=== PATIENT | female | born 1945 | race African-American/Black ===

== ENCOUNTER 2022-11-17 17:03 | Inpatient (IN) | payer SELFPAY ==
--- NOTE | ~2022-11-17 | CT_ITS ---
EXAMINATION: CT BRAIN AND CT CERVICAL SPINE WITHOUT IV CONTRAST. CLINICAL INFORMATION: Dizziness and fall. COMPARISON: None TECHNIQUE: 5 mm thin axial and reformatted 2 mm thin sagittal and coronal images of brain were obtained without contrast. Subsequently axial 2 mm thin and reformatted 2 mm thin sagittal and coronal images of cervical spine were obtained. DLP [id number]. This CT examination was performed using dose optimization technique as appropriate, variously including the following: Automated exposure control Adjustment of MA and/or KV according to patient size(this includes techniques or standardized protocols for targeted exams where dose is matched to indication/reason for exam; extremities or head. Use of iterative reconstruction techniques. FINDINGS: Brain: There is no acute intra-axial, extra-axial bleed, masses or midline shift. There is no acute infarction in evolution. The lateral ventricles are symmetrical in size and configuration without enlargement. The [place] to white matter differentiation is maintained. Bone windows reveal no calvarial abnormality. There is no scalp hematoma. Bilateral paranasal sinuses are well-aerated with minimal mucoperiosteal thickening bilateral maxillary sinuses. Cervical spine: There is mild straightening of cervical lordosis. The vertebral heights and alignment is normal. There is loss of C4-C5 and C5-C6 disc heights. The craniovertebral junction and the C1-C2 alignment is normal. No visible acute fracture, dislocation or subluxation seen. The prevertebral and paravertebral soft tissues are normal. Minimal atelectatic changes or scarring is seen in the right lung apex. CT/CT cervical spine wo IV con IMPRESSION: No acute intracranial process seen. Minimal mucoperiosteal thickening of bilateral maxillary sinuses is noted. Mild straightening of cervical lordosis. No visible acute fracture, dislocation or subluxation seen. Mild degenerative disc changes C4-C5 and C5-C6 disc levels.
--- NOTE | ~2022-11-17 | CT_ITS ---
EXAMINATION: CT ANGIOGRAM OF THE CHEST WITH AND WITHOUT CONTRAST (CT PULMONARY ANGIOGRAM FOR PE) CLINICAL INFORMATION: Reason for Exam near syncope elevated d roger COMPARISON: None TECHNIQUE: Prior to contrast administration, noncontrast localization images were obtained. Subsequently, multidetector volumetric imaging was performed from the thoracic inlet to below the diaphragms following the administration of 85 mL Omnipaque 350 intravenous contrast. No contrast reaction reported Sagittal, coronal, and MIP oblique sagittal reformatted images were obtained on the CT workstation, uploaded to PACS, and reviewed. This CT examination was performed using dose optimization techniques as appropriate, variously including the following: *Automated exposure control *Adjustment of mA and/or kV according to patient size (this includes techniques or standardized protocols for targeted exams where dose is matched to indication/reason for exam; i.e. extremities or head) *Use of iterative reconstruction technique Total exam dose-length product 440 mGy-cm FINDINGS: QUALITY OF STUDY/CONTRAST BOLUS: Satisfactory. PULMONARY ARTERIES: No central or segmental pulmonary emboli. THORACIC AORTA: No aneurysm or dissection. LUNG: There are curvilinear opacities in the bilateral lower lobes favoring atelectasis. No additional consolidation is seen. PLEURA: No pleural effusion or pneumothorax. MEDIASTINUM: The visualized thyroid gland is unremarkable. There are subcentimeter mediastinal lymph nodes within the range of normal variation. Mild cardiomegaly without pericardial effusion. No evidence of septal bowing or right heart strain. CORONARY ARTERY CALCIFICATION: No significant coronary artery calcifications. CHEST WALL/AXILLA: No axillary or internal mammary lymphadenopathy. OSSEOUS STRUCTURES: Degenerative changes are noted in the spine. UPPER ABDOMEN: Unremarkable. No reflux of contrast into the hepatic veins to suggest elevated right heart pressures. CT/CT angio chest PE protocol IMPRESSION: 1. No pulmonary embolus identified. 2. Bibasilar atelectasis. 3. Mild cardiomegaly. VTE: negative
[2022-11-17 17:06] VITALS: BP 177/122; PULSE 73; RESP 20; TEMP 36.3; O2SAT 94; BMI 32.5
--- NOTE | 2022-11-17 17:10 | ED_ITS ---
HPI - General Adult General Chief complaint: Fall <BALTA Maria - Last Filed: 11/17/22 17:11> Stated complaint: Dizziness/Fall <BALTA Maria - Last Filed: 11/17/22 17:11> Time Seen by Provider: 11/17/22 20:13 <BALTA Maria - Last Filed: 11/17/22 17:11> Source: patient <Del Sims MD - Last Filed: 11/18/22 00:39> Mode of arrival: ambulatory <Del Sims MD - Last Filed: 11/18/22 00:39> Limitations: no limitations <Del Sims MD - Last Filed: 11/18/22 00:39> History of Present Illness HPI narrative: Patient with history of hypertension otherwise healthy came back from [place] to 3 days ago with cold symptoms running nose headache body aches with history of shortness of breath on exertion especially with chest discomfort for last few days has not seen any shelf stocker no fever or chills has occasional cough mostly dry PA do not think the blood pressure at home was 156/101 patient was feeling weak did not eat all day today felt dizzy earlier today and passed out no daughter was in the same room did not see her fall but found on the floor patient was dazed for few seconds no nausea no vomiting back to normal now still feels weak and tired and exhausted <Del Sims MD - Last Filed: 11/18/22 00:39> Related Data Allergies/adverse reactions: Allergies Allergy/AdvReac Type Severity Reaction Status Date / Time No Known Allergies Allergy Verified 11/17/22 17:11 <BALTA Maria - Last Filed: 11/17/22 17:11> Review of Systems Review of Systems: Yes all other systems are reviewed and are negative <Del Sims MD - Last Filed: 11/18/22 00:39> [facility] Social History Social History: Social History Advance Directives: No Advance Directives Information Provided: No <BALTA Maria - Last Filed: 11/17/22 17:11> Physical Exam ED Vital Signs: Vital Signs - 24 hr 11/17/22 17:06 11/17/22 19:48 11/17/22 21:32 Temperature 97.3 F 100.4 F 98.8 F Pulse Rate 73 71 74 Respiratory Rate 20 24 H 20 Blood Pressure 177/122 H 164/87 H 180/85 H Pulse Oximetry 94 94 94 Oxygen Delivery Method Room Air Room Air Room Air 11/18/22 00:18 Temperature 99.7 F Pulse Rate 73 Respiratory Rate 23 H Blood Pressure 167/68 H Pulse Oximetry 93 Oxygen Delivery Method Room Air BMI result Body Mass Index 32.5 <BALTA Maria - Last Filed: 11/17/22 17:11> Vital Signs - 24 hr 11/17/22 17:06 11/17/22 19:48 11/17/22 21:32 Temperature 97.3 F 100.4 F 98.8 F Pulse Rate 73 71 74 Respiratory Rate 20 24 H 20 Blood Pressure 177/122 H 164/87 H 180/85 H Pulse Oximetry 94 94 94 Oxygen Delivery Method Room Air Room Air Room Air 11/18/22 00:18 Temperature 99.7 F Pulse Rate 73 Respiratory Rate 23 H Blood Pressure 167/68 H Pulse Oximetry 93 Oxygen Delivery Method Room Air BMI result Body Mass Index 32.5 <Del Sims MD - Last Filed: 11/18/22 00:39> Appearance: Alert. Oriented X3. No acute distress. Eyes: PERRLA, No Nystagmus ENT: Pharynx normal. Oral Mucosa moist Neck: Normal inspection. Neck supple. CVS: Normal heart rate and rhythm. Pulses normal. Respiratory: No respiratory distress. Equal air entry bilateral, no wheezing/rales/rhonchi Abdomen: Soft and nontender. Bowel sounds are present, no mass palpable, no CVA tenderness Skin: Skin warm and dry. Normal skin color. Normal skin turgor. Extremities: No lower extremity edema. No calf tenderness Neuro: Oriented X 3. No motor deficit. No sensory deficit.No cerebellar signs , cranial nerves II-XII intact <Del Sims MD - Last Filed: 11/18/22 00:39> Course Course Course Narrative: RME performed by Karol Smith PA-C. Patient is a 76 year old female presenting to the emergency department with dizziness. Patient states that she has had an elevated blood pressure with intermittent dizziness over the last few days. Labs, EKG, CXR ordered. Patient placed back in the waiting room pending room availability and results. <BALTA Maria - Last Filed: 11/17/22 17:11> Medications Administered Discontinued Medications Generic Name Dose Route Start Last Admin Trade Name Freq PRN Reason Stop Dose Admin Aspirin 162 mg 11/17/22 23:16 11/18/22 00:15 Aspirin Enteric Coated 81 Mg Tablet. PO 11/17/22 23:17 162 mg ONCE ONE Administration Sodium Chloride 1,000 mls @ 999 mls/hr 11/17/22 20:34 11/17/22 21:21 Ns IV 11/17/22 21:34 999 mls/hr .Q1H1M ONE Administration Iohexol 85 ml 11/17/22 23:49 11/17/22 23:49 Iohexol 350 Mg/Ml 100 Ml Infus..Btl IV 11/17/22 23:50 85 ml ONCE ONE Administration <BALTA Maria - Last Filed: 11/17/22 17:11> Medications Administered Discontinued Medications Generic Name Dose Route Start Last Admin Trade Name Freq PRN Reason Stop Dose Admin Aspirin 162 mg 11/17/22 23:16 11/18/22 00:15 Aspirin Enteric Coated 81 Mg Tablet.Dr POMPA 11/17/22 23:17 162 mg ONCE ONE Administration Sodium Chloride 1,000 mls @ 999 mls/hr 11/17/22 20:34 11/17/22 21:21 Ns IV 11/17/22 21:34 999 mls/hr .Q1H1M ONE Administration Iohexol 85 ml 11/17/22 23:49 11/17/22 23:49 Iohexol 350 Mg/Ml 100 Ml Infus..Btl IV 11/17/22 23:50 85 ml ONCE ONE Administration <Del Sims MD - Last Filed: 11/18/22 00:39> Medical Decision Making Medical Decision Making MDM Narrative: Patient with exertion dyspnea and chest pain, positive COVID elevated troponin without any ischemic changes. Will start patient on heparin for unstable angina plan to admit shelf stocker to follow <Del Sims MD - Last Filed: 11/18/22 00:39> Differential Diagnosis Unstable angina/ACS/AMI/PE <Del Sims MD - Last Filed: 11/18/22 00:39> Consult Healthcare Provider Management of the patient was discussed with: Hospitalist <Del Sims MD - Last Filed: 11/18/22 00:39> Lab Data MDM Lab Attestation statement: I reviewed the patient's lab results. <Del Sims MD - Last Filed: 11/18/22 00:39> Result Diagrams: 11/17/22 17:59 11/17/22 17:59 <BALTA Maria - Last Filed: 11/17/22 17:11> Labs: Lab Results 11/17/22 11/17/22 11/17/22 Range/Units 17:59 17:59 17:59 WBC 5.2 (4.8-10.8) X10*3/uL RBC 4.16 L (4.20-5.50) X10*6/uL Hgb 13.0 (12.0-16.0) g/dl Hct 39.0 (37.0-47.0) % MCV 93.8 (80.0-98.0) fL MCH 31.3 (27.0-33.0) pg MCHC 33.3 (31.0-35.0) g/dl RDW 13.6 (11.0-16.0) % Plt Count 217 (160-400) X10*3/uL MPV 10.6 (9.4-12.3) fL Immature Gran % (Auto) 0.2 (0.0-0.4) % Neut % (Auto) 71.9 (45-73) % Lymph % (Auto) 17.9 L (20-40) % [place] % (Auto) 9.2 (2-11) % Eos % (Auto) 0.2 (0-4) % Baso % (Auto) 0.6 (0-2) % Lymph # (Auto) 0.9 L (1.2-4.9) X10*3/uL [place] # (Auto) 0.5 (0.1-1.2) X10*3/uL Eos # (Auto) 0.0 (0.0-0.4) X10*3/uL Baso # (Auto) 0.0 (0.0-0.2) X10*3/uL Abs Immat Gran (auto) 0.01 (0.00-0.03) X10*3/uL Absolute Neuts (auto) 3.7 (2.0-8.3) x10*3/uL Absolute Nucleated RBC 0.000 (0.0-0.012) X10*3/uL Nucleated RBC % (auto) 0.0 (0.0-0.2) /100WBC PT (10.0-13.1) SEC INR (0.9-1.1) APTT (26.0-36.4) SEC D-Dimer High Sensitivty NG/ML Sodium 139 (135-145) mmol/L Potassium 4.6 (3.3-5.1) mmol/L Chloride 106 (96-108) mmol/L Carbon Dioxide 21 L (22-29) mmol/L Anion Gap 17 (12-20) BUN 8 L (9-16) mg/dL Creatinine 0.97 (0.5-1.4) mg/dL Estim Creat Clear Calc 53.2 Estimated GFR 56 Random Glucose 111 (60-115) mg/dL Calcium 8.7 (8.4-10.2) mg/dL Magnesium 2.4 (1.6-2.6) mg/dL Total Bilirubin 0.5 (0.0-1.0) mg/dL AST 24 (5-31) U/L ALT 19 (0-31) U/L Alkaline Phosphatase 115 (39-117) U/L Total Creatine Kinase 228 H (26-140) U/L Troponin I High Sens 117.3 H* (<3.5-17.0) ng/L B-Natriuretic Peptide (<100) pg/mL Total Protein 7.7 (6.5-8.0) g/dL Albumin 3.8 (3.5-5.0) g/dL Urine Color Urine Appearance Urine pH (5.0-9.0) Ur Specific [place] (1.005-1.025) Urine Protein (Neg-Trace) mg/dL Urine Glucose (UA) (Negative) mg/dL Urine Ketones (Negative) mg/dL Urine Blood (Negative) Urine Nitrite (Negative) Ur Leukocyte Esterase (Negative) Influenza Type A (PCR) (Negative) Influenza Type B (PCR) (Negative) RSV RNA Qual (PCR) (Negative) SARS-CoV-2 RNA (RT-PCR) (Negative) 11/17/22 11/17/22 11/17/22 Range/Units 17:59 17:59 18:06 WBC (4.8-10.8) X10*3/uL RBC (4.20-5.50) X10*6/uL Hgb (12.0-16.0) g/dl Hct (37.0-47.0) % MCV (80.0-98.0) fL MCH (27.0-33.0) pg MCHC (31.0-35.0) g/dl RDW (11.0-16.0) % Plt Count (160-400) X10*3/uL MPV (9.4-12.3) fL Immature Gran % (Auto) (0.0-0.4) % Neut % (Auto) (45-73) % Lymph % (Auto) (20-40) % [place] % (Auto) (2-11) % Eos % (Auto) (0-4) % Baso % (Auto) (0-2) % Lymph # (Auto) (1.2-4.9) X10*3/uL [place] # (Auto) (0.1-1.2) X10*3/uL Eos # (Auto) (0.0-0.4) X10*3/uL Baso # (Auto) (0.0-0.2) X10*3/uL Abs Immat Gran (auto) (0.00-0.03) X10*3/uL Absolute Neuts (auto) (2.0-8.3) x10*3/uL Absolute Nucleated RBC (0.0-0.012) X10*3/uL Nucleated RBC % (auto) (0.0-0.2) /100WBC PT (10.0-13.1) SEC INR (0.9-1.1) APTT (26.0-36.4) SEC D-Dimer High Sensitivty NG/ML Sodium (135-145) mmol/L Potassium (3.3-5.1) mmol/L Chloride (96-108) mmol/L Carbon Dioxide (22-29) mmol/L Anion Gap (12-20) BUN (9-16) mg/dL Creatinine (0.5-1.4) mg/dL Estim Creat Clear Calc Estimated GFR Random Glucose (60-115) mg/dL Calcium (8.4-10.2) mg/dL Magnesium (1.6-2.6) mg/dL Total Bilirubin (0.0-1.0) mg/dL AST (5-31) U/L ALT (0-31) U/L Alkaline Phosphatase (39-117) U/L Total Creatine Kinase (26-140) U/L Troponin I High Sens (<3.5-17.0) ng/L B-Natriuretic Peptide 46 (<100) pg/mL Total Protein (6.5-8.0) g/dL Albumin (3.5-5.0) g/dL Urine Color Yellow Urine Appearance Clear Urine pH 5.5 (5.0-9.0) Ur Specific [place] 1.010 (1.005-1.025) Urine Protein Negative (Neg-Trace) mg/dL Urine Glucose (UA) Negative (Negative) mg/dL Urine Ketones Negative (Negative) mg/dL Urine Blood Negative (Negative) Urine Nitrite Negative (Negative) Ur Leukocyte Esterase Negative (Negative) Influenza Type A (PCR) NEGATIVE (Negative) Influenza Type B (PCR) NEGATIVE (Negative) RSV RNA Qual (PCR) NEGATIVE (Negative) SARS-CoV-2 RNA (RT-PCR) POSITIVE A (Negative) 11/17/22 11/17/22 Range/Units 21:12 21:25 WBC (4.8-10.8) X10*3/uL RBC (4.20-5.50) X10*6/uL Hgb (12.0-16.0) g/dl Hct (37.0-47.0) % MCV (80.0-98.0) fL MCH (27.0-33.0) pg MCHC (31.0-35.0) g/dl RDW (11.0-16.0) % Plt Count (160-400) X10*3/uL MPV (9.4-12.3) fL Immature Gran % (Auto) (0.0-0.4) % Neut % (Auto) (45-73) % Lymph % (Auto) (20-40) % [place] % (Auto) (2-11) % Eos % (Auto) (0-4) % Baso % (Auto) (0-2) % Lymph # (Auto) (1.2-4.9) X10*3/uL [place] # (Auto) (0.1-1.2) X10*3/uL Eos # (Auto) (0.0-0.4) X10*3/uL Baso # (Auto) (0.0-0.2) X10*3/uL Abs Immat Gran (auto) (0.00-0.03) X10*3/uL Absolute Neuts (auto) (2.0-8.3) x10*3/uL Absolute Nucleated RBC (0.0-0.012) X10*3/uL Nucleated RBC % (auto) (0.0-0.2) /100WBC PT 11.5 (10.0-13.1) SEC INR 1.0 (0.9-1.1) APTT 28.8 (26.0-36.4) SEC D-Dimer High Sensitivty 622 NG/ML Sodium (135-145) mmol/L Potassium (3.3-5.1) mmol/L Chloride (96-108) mmol/L Carbon Dioxide (22-29) mmol/L Anion Gap (12-20) BUN (9-16) mg/dL Creatinine (0.5-1.4) mg/dL Estim Creat Clear Calc Estimated GFR Random Glucose (60-115) mg/dL Calcium (8.4-10.2) mg/dL Magnesium (1.6-2.6) mg/dL Total Bilirubin (0.0-1.0) mg/dL AST (5-31) U/L ALT (0-31) U/L Alkaline Phosphatase (39-117) U/L Total Creatine Kinase (26-140) U/L Troponin I High Sens 122.1 H* (<3.5-17.0) ng/L B-Natriuretic Peptide (<100) pg/mL Total Protein (6.5-8.0) g/dL Albumin (3.5-5.0) g/dL Urine Color Urine Appearance Urine pH (5.0-9.0) Ur Specific [place] (1.005-1.025) Urine Protein (Neg-Trace) mg/dL Urine Glucose (UA) (Negative) mg/dL Urine Ketones (Negative) mg/dL Urine Blood (Negative) Urine Nitrite (Negative) Ur Leukocyte Esterase (Negative) Influenza Type A (PCR) (Negative) Influenza Type B (PCR) (Negative) RSV RNA Qual (PCR) (Negative) SARS-CoV-2 RNA (RT-PCR) (Negative) <BALTA Maria - Last Filed: 11/17/22 17:11> Lab Results 11/17/22 11/17/22 11/17/22 Range/Units 17:59 17:59 17:59 WBC 5.2 (4.8-10.8) X10*3/uL RBC 4.16 L (4.20-5.50) X10*6/uL Hgb 13.0 (12.0-16.0) g/dl Hct 39.0 (37.0-47.0) % MCV 93.8 (80.0-98.0) fL MCH 31.3 (27.0-33.0) pg MCHC 33.3 (31.0-35.0) g/dl RDW 13.6 (11.0-16.0) % Plt Count 217 (160-400) X10*3/uL MPV 10.6 (9.4-12.3) fL Immature Gran % (Auto) 0.2 (0.0-0.4) % Neut % (Auto) 71.9 (45-73) % Lymph % (Auto) 17.9 L (20-40) % [place] % (Auto) 9.2 (2-11) % Eos % (Auto) 0.2 (0-4) % Baso % (Auto) 0.6 (0-2) % Lymph # (Auto) 0.9 L (1.2-4.9) X10*3/uL [place] # (Auto) 0.5 (0.1-1.2) X10*3/uL Eos # (Auto) 0.0 (0.0-0.4) X10*3/uL Baso # (Auto) 0.0 (0.0-0.2) X10*3/uL Abs Immat Gran (auto) 0.01 (0.00-0.03) X10*3/uL Absolute Neuts (auto) 3.7 (2.0-8.3) x10*3/uL Absolute Nucleated RBC 0.000 (0.0-0.012) X10*3/uL Nucleated RBC % (auto) 0.0 (0.0-0.2) /100WBC PT (10.0-13.1) SEC INR (0.9-1.1) APTT (26.0-36.4) SEC D-Dimer High Sensitivty NG/ML Sodium 139 (135-145) mmol/L Potassium 4.6 (3.3-5.1) mmol/L Chloride 106 (96-108) mmol/L Carbon Dioxide 21 L (22-29) mmol/L Anion Gap 17 (12-20) BUN 8 L (9-16) mg/dL Creatinine 0.97 (0.5-1.4) mg/dL Estim Creat Clear Calc 53.2 Estimated GFR 56 Random Glucose 111 (60-115) mg/dL Calcium 8.7 (8.4-10.2) mg/dL Magnesium 2.4 (1.6-2.6) mg/dL Total Bilirubin 0.5 (0.0-1.0) mg/dL AST 24 (5-31) U/L ALT 19 (0-31) U/L Alkaline Phosphatase 115 (39-117) U/L Total Creatine Kinase 228 H (26-140) U/L Troponin I High Sens 117.3 H* (<3.5-17.0) ng/L B-Natriuretic Peptide (<100) pg/mL Total Protein 7.7 (6.5-8.0) g/dL Albumin 3.8 (3.5-5.0) g/dL Urine Color Urine Appearance Urine pH (5.0-9.0) Ur Specific [place] (1.005-1.025) Urine Protein (Neg-Trace) mg/dL Urine Glucose (UA) (Negative) mg/dL Urine Ketones (Negative) mg/dL Urine Blood (Negative) Urine Nitrite (Negative) Ur Leukocyte Esterase (Negative) Influenza Type A (PCR) (Negative) Influenza Type B (PCR) (Negative) RSV RNA Qual (PCR) (Negative) SARS-CoV-2 RNA (RT-PCR) (Negative) 11/17/22 11/17/2211/17/23 Range/Units 17:59 17:59 18:06 WBC (4.8-10.8) X10*3/uL RBC (4.20-5.50) X10*6/uL Hgb (12.0-16.0) g/dl Hct (37.0-47.0) % MCV (80.0-98.0) fL MCH (27.0-33.0) pg MCHC (31.0-35.0) g/dl RDW (11.0-16.0) % Plt Count (160-400) X10*3/uL MPV (9.4-12.3) fL Immature Gran % (Auto) (0.0-0.4) % Neut % (Auto) (45-73) % Lymph % (Auto) (20-40) % [place] % (Auto) (2-11) % Eos % (Auto) (0-4) % Baso % (Auto) (0-2) % Lymph # (Auto) (1.2-4.9) X10*3/uL [place] # (Auto) (0.1-1.2) X10*3/uL Eos # (Auto) (0.0-0.4) X10*3/uL Baso # (Auto) (0.0-0.2) X10*3/uL Abs Immat Gran (auto) (0.00-0.03) X10*3/uL Absolute Neuts (auto) (2.0-8.3) x10*3/uL Absolute Nucleated RBC (0.0-0.012) X10*3/uL Nucleated RBC % (auto) (0.0-0.2) /100WBC PT (10.0-13.1) SEC INR (0.9-1.1) APTT (26.0-36.4) SEC D-Dimer High Sensitivty NG/ML Sodium (135-145) mmol/L Potassium (3.3-5.1) mmol/L Chloride (96-108) mmol/L Carbon Dioxide (22-29) mmol/L Anion Gap (12-20) BUN (9-16) mg/dL Creatinine (0.5-1.4) mg/dL Estim Creat Clear Calc Estimated GFR Random Glucose (60-115) mg/dL Calcium (8.4-10.2) mg/dL Magnesium (1.6-2.6) mg/dL Total Bilirubin (0.0-1.0) mg/dL AST (5-31) U/L ALT (0-31) U/L Alkaline Phosphatase (39-117) U/L Total Creatine Kinase (26-140) U/L Troponin I High Sens (<3.5-17.0) ng/L B-Natriuretic Peptide 46 (<100) pg/mL Total Protein (6.5-8.0) g/dL Albumin (3.5-5.0) g/dL Urine Color Yellow Urine Appearance Clear Urine pH 5.5 (5.0-9.0) Ur Specific [place] 1.010 (1.005-1.025) Urine Protein Negative (Neg-Trace) mg/dL Urine Glucose (UA) Negative (Negative) mg/dL Urine Ketones Negative (Negative) mg/dL Urine Blood Negative (Negative) Urine Nitrite Negative (Negative) Ur Leukocyte Esterase Negative (Negative) Influenza Type A (PCR) NEGATIVE (Negative) Influenza Type B (PCR) NEGATIVE (Negative) RSV RNA Qual (PCR) NEGATIVE (Negative) SARS-CoV-2 RNA (RT-PCR) POSITIVE A (Negative) 11/17/22 11/17/22 Range/Units 21:12 21:25 WBC (4.8-10.8) X10*3/uL RBC (4.20-5.50) X10*6/uL Hgb (12.0-16.0) g/dl Hct (37.0-47.0) % MCV (80.0-98.0) fL MCH (27.0-33.0) pg MCHC (31.0-35.0) g/dl RDW (11.0-16.0) % Plt Count (160-400) X10*3/uL MPV (9.4-12.3) fL Immature Gran % (Auto) (0.0-0.4) % Neut % (Auto) (45-73) % Lymph % (Auto) (20-40) % [place] % (Auto) (2-11) % Eos % (Auto) (0-4) % Baso % (Auto) (0-2) % Lymph # (Auto) (1.2-4.9) X10*3/uL [place] # (Auto) (0.1-1.2) X10*3/uL Eos # (Auto) (0.0-0.4) X10*3/uL Baso # (Auto) (0.0-0.2) X10*3/uL Abs Immat Gran (auto) (0.00-0.03) X10*3/uL Absolute Neuts (auto) (2.0-8.3) x10*3/uL Absolute Nucleated RBC (0.0-0.012) X10*3/uL Nucleated RBC % (auto) (0.0-0.2) /100WBC PT 11.5 (10.0-13.1) SEC INR 1.0 (0.9-1.1) APTT 28.8 (26.0-36.4) SEC D-Dimer High Sensitivty 622 NG/ML Sodium (135-145) mmol/L Potassium (3.3-5.1) mmol/L Chloride (96-108) mmol/L Carbon Dioxide (22-29) mmol/L Anion Gap (12-20) BUN (9-16) mg/dL Creatinine (0.5-1.4) mg/dL Estim Creat Clear Calc Estimated GFR Random Glucose (60-115) mg/dL Calcium (8.4-10.2) mg/dL Magnesium (1.6-2.6) mg/dL Total Bilirubin (0.0-1.0) mg/dL AST (5-31) U/L ALT (0-31) U/L Alkaline Phosphatase (39-117) U/L Total Creatine Kinase (26-140) U/L Troponin I High Sens 122.1 H* (<3.5-17.0) ng/L B-Natriuretic Peptide (<100) pg/mL Total Protein (6.5-8.0) g/dL Albumin (3.5-5.0) g/dL Urine Color Urine Appearance Urine pH (5.0-9.0) Ur Specific [place] (1.005-1.025) Urine Protein (Neg-Trace) mg/dL Urine Glucose (UA) (Negative) mg/dL Urine Ketones (Negative) mg/dL Urine Blood (Negative) Urine Nitrite (Negative) Ur Leukocyte Esterase (Negative) Influenza Type A (PCR) (Negative) Influenza Type B (PCR) (Negative) RSV RNA Qual (PCR) (Negative) SARS-CoV-2 RNA (RT-PCR) (Negative) <Del Sims MD - Last Filed: 11/18/22 00:39> Independent Interpretation I performed an independent interpretation of an: EKG <Del Sims MD - Last Filed: 11/18/22 00:39> Interpretation: No sinus rhythm heart rate 66 beats per minute LVH no acute distress no acute ischemia <Del Sims MD - Last Filed: 11/18/22 00:39> Critical Care Time Critical Care Time Critical Care Time: Yes <Del Sims MD - Last Filed: 11/18/22 00:39> Total Critical Care Time: 40 <Del Sims MD - Last Filed: 11/18/22 00:39> Attestation: The patient was critically ill with a high probability of imminent or life threatening deterioration. I spent greater than45 minutes of discontinuous time evaluating the patient,delivering critical care at the bedside, discussing and evaluating pertinent data with consultants. Critical care time does not include time spent performing separately billable procedures or teaching. Total time spent performing critical care was 40 minutes. <Del Sims MD - Last Filed: 11/18/22 00:39> Discharge Plan Discharge Clinical Impression: Acute COVID-19, Unstable angina <BALTA Maria - Last Filed: 11/17/22 17:11> Patient Disposition: Admitted As Inpatient <BALTA Maria - Last Filed: 11/17/22 17:11>
--- NOTE | 2022-11-17 17:11 | ECG_ITS ---
Test Reason : DIZZINESS Blood Pressure : / mmHG Vent. Rate : 066 BPM Atrial Rate : 066 BPM P-R Int : 160 ms QRS Dur : 076 ms QT Int : 406 ms P-R-T Axes : 040 -27 023 degrees QTc Int : 425 ms Normal sinus rhythm Moderate voltage criteria for LVH, may be normal variant ( R in aVL , [place] product ) Borderline ECG No previous ECGs available Referred By: Karol Smith Electronically Signed By:Hector Abbasi
[2022-11-17 18:04] LABS: MANUAL DIFF FLAG NO
[2022-11-17 18:16] LABS: Appearance Urine Clear; Color Urine Yellow; Glucose Urine UA Negative (Negative); Leukocyte Esterase Urine Negative (Negative); Nitrite Urine Negative (Negative); PH 5.5 (5.0-9.0); Urine Blood Negative (Negative); Urine Ketones Negative (Negative); Urine Protein Negative (Neg-Trace)
[2022-11-17 18:17] LABS: Basophils Percent Auto 0.6 % (0-2); Eosinophils Percent Auto 0.2 % (0-4); Imm Gran Abs Auto 0.01 X10*3/uL (0.00-0.03); Imm Gran Pct Auto 0.2 % (0.0-0.4); Lymphocytes Absolute Auto 0.9 X10*3/uL (1.2-4.9); Lymphocytes Percent Auto 17.9 % (20-40); Mean Corpuscular HGB Conc 33.3 g/dl (31.0-35.0); Mean Corpuscular Hemoglobin 31.3 pg (27.0-33.0); Mean Corpuscular Volume 93.8 fL (80.0-98.0); Mean Platelet Volume 10.6 fL (9.4-12.3); Monocytes Absolute Auto 0.5 X10*3/uL (0.1-1.2); Monocytes Percent Auto 9.2 % (2-11); Neutrophils Absolute Auto 3.7 x10*3/uL (2.0-8.3); Neutrophils Percent Auto 71.9 % (45-73); Platelet Count 217 X10*3/uL (160-400); Red Blood Count 4.16 X10*6/uL (4.20-5.50); Red Cell Distribution Width 13.6 % (11.0-16.0); White Blood Count 5.2 X10*3/uL (4.8-10.8)
[2022-11-17 18:25] LABS: Alanine Aminotransferase 19 U/L (0-31); Albumin Level 3.8 g/dL (3.5-5.0); Alkaline Phosphatase 115 U/L (39-117); Anion Gap 17 (12-20); Aspartate Amino Transferase 24 U/L (5-31); Bilirubin Total 0.5 mg/dL (0.0-1.0); Blood Urea Nitrogen 8 mg/dL (9-16); Calcium 8.7 mg/dL (8.4-10.2); Carbon Dioxide 21 mmol/L (22-29); Chloride 106 mmol/L (96-108); Creatinine Clr Calc Pharmacy 53.2; Estimated Glomerular Filt Rate 56; Glucose Random 111 mg/dL (60-115); Magnesium 2.4 mg/dL (1.6-2.6); Potassium 4.6 mmol/L (3.3-5.1); Sodium 139 mmol/L (135-145); Total Protein 7.7 g/dL (6.5-8.0)
[2022-11-17 18:31] LABS: B Type Natriuretic Peptide 46 pg/mL (<100)
[2022-11-17 18:51] LABS: Influenza A PCR NEGATIVE (Negative); Influenza B PCR NEGATIVE (Negative); Resp Syncy Virus RNA Qual PCR NEGATIVE (Negative); SARS COV2 PCR INHOUSE POSITIVE (Negative); Troponin-I High Sensitivity 117.3 ng/L (<3.5-17.0)
[2022-11-17 19:48] VITALS: BP 164/87; PULSE 71; RESP 24; TEMP 38; O2SAT 94
[2022-11-17] MEDS: 0.9 % Sodium Chloride 1,000 ML 999 ML IV (21:21)
[2022-11-17 21:32] VITALS: BP 180/85; PULSE 74; RESP 20; TEMP 37.1; O2SAT 94
[2022-11-17 21:47] LABS: Prothrombin Time 11.5 SEC (10.0-13.1)
[2022-11-17 21:49] LABS: Partial Thromboplastin Time 28.8 SEC (26.0-36.4)
[2022-11-17 22:00] LABS: Troponin-I High Sensitivity 122.1 ng/L (<3.5-17.0)
[2022-11-17 22:41] LABS: D Dimer High Sensitivity 622 NG/ML
[2022-11-17] MEDS: iohexoL 350 MG/ML 100 ML INFUS..BTL 85 ML IV (23:49)
[2022-11-18] VITALS (8 sets, daily range): BP systolic 131–167; BP diastolic 68–95; PULSE 59–79; RESP 18–24; TEMP 36.9–37.6; O2SAT 93–98; BMI 34.9
[2022-11-18] MEDS: Aspirin Enteric Coated 81 MG TABLET.DR 162 MG PO (00:15)
--- NOTE | 2022-11-18 00:33 | P.HPHOSP_ITS ---
History of Present Illness Date of Service: 11/18/22 Chief Complaint: Chest discomfort This is a 76-year-old female with pertinent history of essential hypertension who presents to the emergency department for evaluation of chest discomfort and dizziness. Patient is from [place] and flew in from [place] this week. States she has been having chest discomfort, substernal which is worse with exertion. Also has runny nose, headache, generalized body ache. Chest discomfort associated with shortness of breath. She only takes an antihypertensive and states he is compliant with it. Her blood pressures were running high at home. Patient also had an episode of dizziness after which she fell. Unclear if she l ost consciousness. Patient denies fever, chills, palpitations, abdominal pain, changes in urinary or bowel habits. No history of ACS/CHF In the emergency department, troponin was found to be elevated and she was initiated on heparin drip Review of Systems Constitutional: Constitutional: Reports body ache(s), Reports lethargy and Reports malaise Cardiovascular: Cardiovascular: Reports chest pain, Reports chest pain with activity and Reports dyspnea on exertion Respiratory: Respiratory: Reports cough and Reports dyspnea on exertion Gastrointestinal: Gastrointestinal: Reports no additional gastrointestinal complaints Genitourinary: Genitourinary: Reports no additional female genitourinary complaints [facility] Medical History Hypertension Pertinent family history: not significant due to age Social History Advance Directives: No Advance Directives Information Provided: No Meds Allergies Allergy/AdvReac Type Severity Reaction Status Date / Time No Known Allergies Allergy Verified 11/17/22 17:11 Active Medications: Current Medications Heparin Sodium (Porcine) (Heparin Sodium,Porcine 5,000 Unit/Ml Vial) 3,400 unit 40 unit/kg (3400 unit) IVPUSH PROTOCOL BOLUS PRN; Protocol PRN Reason: 40 unit/kg - Heparin Protocol Heparin Sodium (Porcine) (Heparin Sodium,Porcine 5,000 Unit/Ml Vial) 6,900 unit 80 unit/kg (6900 unit) IVPUSH PROTOCOL BOLUS PRN; Protocol PRN Reason: 80 unit/kg - Heparin Protocol Heparin Sodium/Sodium Chloride (Heparin Sodium,Porcine/1/2ns) 25,000 unit in 250 mls @ 0 mls/hr IVCONT .Q0M [facility]; Protocol Physical Exam Vital Signs and Narrative: Vital Signs: Last Vital Signs Temp 99.7 F 11/18/22 00:18 Pulse 73 11/18/22 00:18 Resp 23 H 11/18/22 00:18 BP 167/68 H 11/18/22 00:18 Pulse Ox 93 11/18/22 00:18 O2 Del Method 11/18/22 00:18 BMI result Body Mass Index 32.5 Elderly female lying in bed in no distress Neck supple, no JVD Regular rate and rhythm, S1-S2 heard Regular breath sounds bilaterally, no wheezing or crackles appreciated Abdomen soft nontender, no guarding, no rigidity Patient is awake, alert and oriented to self, place, time and person ; no focal motor deficit Psych: Normal mood No pedal edema Results Labs 11/17/22 17:59 11/17/22 17:59 Labs: Laboratory Results - last 24 hr 11/17/22 11/17/22 11/17/22 17:59 17:59 17:59 MCV 93.8 MCH 31.3 MCHC 33.3 RDW 13.6 Plt Count 217 MPV 10.6 Immature Gran % (Auto) 0.2 Neut % (Auto) 71.9 Lymph % (Auto) 17.9 L [place] % (Auto) 9.2 Eos % (Auto) 0.2 Baso % (Auto) 0.6 Lymph # (Auto) 0.9 L [place] # (Auto) 0.5 Eos # (Auto) 0.0 Baso # (Auto) 0.0 Abs Immat Gran (auto) 0.01 Absolute Neuts (auto) 3.7 Absolute Nucleated RBC 0.000 Nucleated RBC % (auto) 0.0 PT INR APTT D-Dimer High Sensitivty Anion Gap 17 Estim Creat Clear Calc 53.2 Estimated GFR 56 Random Glucose 111 Calcium 8.7 Magnesium 2.4 Total Bilirubin 0.5 AST 24 ALT 19 Alkaline Phosphatase 115 Total Creatine Kinase 228 H Troponin I High Sens 117.3 H* B-Natriuretic Peptide Total Protein 7.7 Albumin 3.8 Urine Color Urine Appearance Urine pH Ur Specific [place] Urine Protein Urine Glucose (UA) Urine Ketones Urine Blood Urine Nitrite Ur Leukocyte Esterase Influenza Type A (PCR) Influenza Type B (PCR) RSV RNA Qual (PCR) SARS-CoV-2 RNA (RT-PCR) 11/17/22 11/17/22 11/17/22 17:59 17:59 18:06 MCV MCH MCHC RDW Plt Count MPV Immature Gran % (Auto) Neut % (Auto) Lymph % (Auto) [place] % (Auto) Eos % (Auto) Baso % (Auto) Lymph # (Auto) [place] # (Auto) Eos # (Auto) Baso # (Auto) Abs Immat Gran (auto) Absolute Neuts (auto) Absolute Nucleated RBC Nucleated RBC % (auto) PT INR APTT D-Dimer High Sensitivty Anion Gap Estim Creat Clear Calc Estimated GFR Random Glucose Calcium Magnesium Total Bilirubin AST ALT Alkaline Phosphatase Total Creatine Kinase Troponin I High Sens B-Natriuretic Peptide 46 Total Protein Albumin Urine Color Yellow Urine Appearance Clear Urine pH 5.5 Ur Specific [place] 1.010 Urine Protein Negative Urine Glucose (UA) Negative Urine Ketones Negative Urine Blood Negative Urine Nitrite Negative Ur Leukocyte Esterase Negative Influenza Type A (PCR) NEGATIVE Influenza Type B (PCR) NEGATIVE RSV RNA Qual (PCR) NEGATIVE SARS-CoV-2 RNA (RT-PCR) POSITIVE A 11/17/22 11/17/22 21:12 21:25 MCV MCH MCHC RDW Plt Count MPV Immature Gran % (Auto) Neut % (Auto) Lymph % (Auto) [place] % (Auto) Eos % (Auto) Baso % (Auto) Lymph # (Auto) [place] # (Auto) Eos # (Auto) Baso # (Auto) Abs Immat Gran (auto) Absolute Neuts (auto) Absolute Nucleated RBC Nucleated RBC % (auto) PT 11.5 INR 1.0 APTT 28.8 D-Dimer High Sensitivty 622 Anion Gap Estim Creat Clear Calc Estimated GFR Random Glucose Calcium Magnesium Total Bilirubin AST ALT Alkaline Phosphatase Total Creatine Kinase Troponin I High Sens 122.1 H* B-Natriuretic Peptide Total Protein Albumin Urine Color Urine Appearance Urine pH Ur Specific [place] Urine Protein Urine Glucose (UA) Urine Ketones Urine Blood Urine Nitrite Ur Leukocyte Esterase Influenza Type A (PCR) Influenza Type B (PCR) RSV RNA Qual (PCR) SARS-CoV-2 RNA (RT-PCR) Imaging Radiologist's Impressions: Impressions Cervical Spine CT 11/17/22 18:25 IMPRESSION: No acute intracranial process seen. Minimal mucoperiosteal thickening of bilateral maxillary sinuses is noted. Mild straightening of cervical lordosis. No visible acute fracture, dislocation or subluxation seen. Mild degenerative disc changes C4-C5 and C5-C6 disc levels. Head CT 11/17/22 18:25 IMPRESSION: No acute intracranial process seen. Minimal mucoperiosteal thickening of bilateral maxillary sinuses is noted. Mild straightening of cervical lordosis. No visible acute fracture, dislocation or subluxation seen. Mild degenerative disc changes C4-C5 and C5-C6 disc levels. Chest CTA 11/17/22 23:53 IMPRESSION: 1. No pulmonary embolus identified. 2. Bibasilar atelectasis. 3. Mild cardiomegaly. VTE: negative Assessment and Plan (1) NSTEMI (non-ST elevated myocardial infarction): Status: Acute Plan This is a 76-year-old female with pertinent history of essential hypertension who presents to the emergency department for evaluation of chest discomfort and dizziness. #. NSTEMI: Initiated IV heparin in the ER. Patient given aspirin, beta-yaneth and statin. Ordered echo and consulting cardiology. #. Hypertensive emergency: Unclear antihypertensive regimen at home. Given beta-yaneth as above and initiating calcium channel yaneth #. Presyncope: Orthostatic versus cardiac. Unclear if patient lost consciousness. Resuscitated with IV crystalloids in the ER. Will admit with tele monitor and repeat orthostatic vital signs in a.m. #. COVID-19 infection: Symptomatic treatment. No hypoxemia and no indication for Decadron DVT prophylaxis: Heparin drip Full code Cardiac diet Admit as inpatient and will require two night minimum hospital stay for IV heparin Time Spent With Patient Time: Total time managing care of this patient today ____ minutes. Quality Stroke Does the patient have a stroke diagnosis?: No VTE Prior VTE?: No VTE Risk Level:: Medical - moderate - high VTE Device Contraindication: Treatment Not Indicated VTE Drug Contraindication: N/A - Med Ordered
--- NOTE | 2022-11-18 00:45 | MHC.EDTECH ---
PT 1x assisted to the bedside commode. PT 1X assisted back to bed. Call parsons placed in reach and warm blankets given
--- NOTE | 2022-11-18 01:11 | PC.NURSE ---
Left AC IV line infiltrated. Multiple unsuccessful attempts made by 2 RN's to re-establish an IV line. MD aware to attempt an U/S line. Pt to be medicated with IV Heparin when IV line is established. MD aware.
[2022-11-18 01:32] LABS: PTT Heparin Drip 30.6 SEC (53-77.9)
[2022-11-18] MEDS: Heparin Sodium,Porcine/1/2NS 25,000 UNIT/250 ML IV.SOLN 10 UNIT IVCONT (01:51)
[2022-11-18] MEDS: Metoprolol Tartrate 5 MG/5 ML VIAL IVPUSH (01:54)
[2022-11-18] MEDS: Heparin Sodium,Porcine 5,000 UNIT/ML VIAL 5000 UNIT IVPUSH (01:54)
[2022-11-18] MEDS: amLODIPine Besylate 5 MG TABLET PO ×2 (01:56→10:10)
[2022-11-18] MEDS: Atorvastatin Calcium 40 MG TABLET PO (01:56)
--- NOTE | 2022-11-18 02:03 | PC.NURSE ---
20G IV L AC established via U/S by . Pt medicated as ordered. Heparin drip started at 10ml/hr as ordered. Pt tolerating well. Next PTT HD due @ 0800. Pt aware of plan of care. Will continue to monitor.
--- NOTE | 2022-11-18 05:31 | PC.NURSE ---
RN to RN report provided to CARRINGTON Malagon. Pt being transferred to room 477 and aware of plan of care.
[2022-11-18 07:15] LABS: MANUAL DIFF FLAG NO
[2022-11-18 07:16] LABS: Basophils Percent Auto 0.6 % (0-2); Hematocrit 38.9 % (37.0-47.0); Hemoglobin 12.7 g/dl (12.0-16.0); Imm Gran Abs Auto 0.01 X10*3/uL (0.00-0.03); Imm Gran Pct Auto 0.3 % (0.0-0.4); Lymphocytes Absolute Auto 1.5 X10*3/uL (1.2-4.9); Lymphocytes Percent Auto 44.2 % (20-40); Mean Corpuscular HGB Conc 32.6 g/dl (31.0-35.0); Mean Corpuscular Hemoglobin 31.3 pg (27.0-33.0); Mean Corpuscular Volume 95.8 fL (80.0-98.0); Mean Platelet Volume 10.2 fL (9.4-12.3); Monocytes Absolute Auto 0.4 X10*3/uL (0.1-1.2); Monocytes Percent Auto 10.2 % (2-11); Neutrophils Absolute Auto 1.5 x10*3/uL (2.0-8.3); Neutrophils Percent Auto 44.7 % (45-73); Platelet Count 219 X10*3/uL (160-400); Red Blood Count 4.06 X10*6/uL (4.20-5.50); Red Cell Distribution Width 13.8 % (11.0-16.0); White Blood Count 3.4 X10*3/uL (4.8-10.8)
[2022-11-18 07:25] LABS: PTT Heparin Drip 83.3 SEC (53-77.9)
[2022-11-18 08:12] LABS: Troponin-I High Sensitivity 137.2 ng/L (<3.5-17.0)
[2022-11-18] MEDS: 0.9 % Sodium Chloride Flush 3 ML SYRINGE IVFLUSH (10:10)
[2022-11-18] MEDS: Acetaminophen 325 MG TABLET 650 MG PO ×2 (10:13→16:48)
[2022-11-18 12:35] LABS: Anion Gap 16 (12-20); Blood Urea Nitrogen 7 mg/dL (9-16); Calcium 8.6 mg/dL (8.4-10.2); Carbon Dioxide 18 mmol/L (22-29); Chloride 110 mmol/L (96-108); Creatinine Clr Calc Pharmacy 65.2; Estimated Glomerular Filt Rate > 60; Glucose Random 112 mg/dL (60-115); Sodium 140 mmol/L (135-145)
--- NOTE | 2022-11-18 13:07 | P.CONCA_ITS ---
History of Present Illness History of Present Illness Date of Service: 11/18/22 Requesting physician: Jhonny Escalona Chief complaint: + troponin, Elevated BP Narrative: [age] year female who traveled back from [place] on Sunday. She is COVID positive. She has headache and ear pain currently. Denying any chest discomfort. She also was feeling slightly dizzy but had no syncope. She has very mildly elevated troponin levels. Her blood pressures were significantly elevated. Her main complaint right now is that she has sinus pain and ear ache. She is denying any chest discomfort at any time. No shortness of breath. Blood pressure is little better. She was started on heparin drip for NSTEMI. [facility] Past Medical History Medical History Hypertension Social History Social History Household Members: Children Housing: House Patient Tobacco Use Status: Never used Tobacco Meds Allergies Allergy/AdvReac Type Severity Reaction Status Date / Time No Known Allergies Allergy Verified 11/17/22 17:11 Active Medications: Current Medications Acetaminophen (Acetaminophen 325 Mg Tablet) 650 mg PO Q6H PRN PRN Reason: Pain, Mild (Pain Scale 1-3) Last Admin: 11/18/22 10:13 Dose: 650 mg Amlodipine Besylate (Amlodipine Besylate 5 Mg Tablet) 5 mg PO DAILY [facility]; Protocol Last Admin: 11/18/22 10:10 Dose: 5 mg Enalapril Maleate (Enalapril Maleate 10 Mg Tablet) 10 mg PO DAILY [facility]; Protocol Heparin Sodium (Porcine) (Heparin Sodium,Porcine 5,000 Unit/Ml Vial) 3,600 unit IVPUSH PROTOCOL BOLUS PRN; Protocol PRN Reason: 40 unit/kg - Heparin Protocol Heparin Sodium (Porcine) (Heparin Sodium,Porcine 5,000 Unit/Ml Vial) 7,300 unit IVPUSH PROTOCOL BOLUS PRN; Protocol PRN Reason: 80 unit/kg - Heparin Protocol Heparin Sodium/Sodium Chloride (Heparin Sodium,Porcine/1/2ns) 25,000 unit in 250 mls @ 0 mls/hr IVCONT .Q0M [facility]; Protocol Last Titration: 11/18/22 10:07 Dose: 8.85 units/kg/hr, 8.16 mls/hr Melatonin (Melatonin 3 Mg Tablet) 6 mg PO BEDTIME PRN PRN Reason: Insomnia Nitroglycerin (Nitroglycerin 0.4 Mg Tab.Subl) 0.4 mg SUBLINGUAL Q5MX3 PRN PRN Reason: Chest Pain Ondansetron HCl (Ondansetron Hcl 4 Mg/2 Ml Vial) 4 mg IVPUSH Q8H PRN PRN Reason: Nausea and Vomiting Pharmacy Consult (Consult Rx Perform Med Rec) 1 each MISCELLANE ONCE PRN PRN Reason: Consult order Sodium Chloride (0.9 % Sodium Chloride Flush 3 Ml Syringe) 3 ml IVFLUSH QSHIFT [facility] Last Admin: 11/18/22 10:10 Dose: 3 ml Home Medications Medication Instructions Recorded Confirmed Last Taken Type DIVENIS 500 mg PO BID 11/18/22 11/18/22 Unknown History enalapril maleate 10 mg tablet 10 mg PO DAILY 11/18/22 11/18/22 Unknown History Physical Exam Vital Signs: Vital Signs: Last Vital Signs Temp 98.5 F 11/18/22 11:22 Pulse 78 11/18/22 11:22 Resp 19 11/18/22 11:22 BP 140/80 H 11/18/22 11:22 Pulse Ox 98 11/18/22 11:22 O2 Del Method 11/18/22 11:22 BMI result Body Mass Index 34.9 GENERAL APPEARANCE: in no acute distress, pleasant. NECK: no carotid bruit, no jugular venous distention. SKIN: no suspicious lesions, warm and dry. HEART: no murmurs, regular rate and rhythm. LUNGS: clear to auscultation bilaterally. ABDOMEN: soft, nontender. EXTREMITIES: no edema. PERIPHERAL PULSES: equal. NEUROLOGIC: No gross deficits, AAO X 3 Objective Labs and Meds 11/18/22 07:08 11/18/22 07:08 Lab results: Laboratory Results - last 24 hr 11/17/22 11/17/22 11/17/22 17:59 17:59 17:59 WBC 5.2 RBC 4.16 L Hgb 13.0 Hct 39.0 MCV 93.8 MCH 31.3 MCHC 33.3 RDW 13.6 Plt Count 217 MPV 10.6 Immature Gran % (Auto) 0.2 Neut % (Auto) 71.9 Lymph % (Auto) 17.9 L [place] % (Auto) 9.2 Eos % (Auto) 0.2 Baso % (Auto) 0.6 Lymph # (Auto) 0.9 L [place] # (Auto) 0.5 Eos # (Auto) 0.0 Baso # (Auto) 0.0 Abs Immat Gran (auto) 0.01 Absolute Neuts (auto) 3.7 Absolute Nucleated RBC 0.000 Nucleated RBC % (auto) 0.0 PT INR APTT aPTT Heparin Protocol D-Dimer High Sensitivty Sodium 139 Potassium 4.6 Chloride 106 Carbon Dioxide 21 L Anion Gap 17 BUN 8 L Creatinine 0.97 Estim Creat Clear Calc 53.2 Estimated GFR 56 Random Glucose 111 Calcium 8.7 Magnesium 2.4 Total Bilirubin 0.5 AST 24 ALT 19 Alkaline Phosphatase 115 Total Creatine Kinase 228 H Troponin I High Sens 117.3 H* B-Natriuretic Peptide Total Protein 7.7 Albumin 3.8 Urine Color Urine Appearance Urine pH Ur Specific [place] Urine Protein Urine Glucose (UA) Urine Ketones Urine Blood Urine Nitrite Ur Leukocyte Esterase Influenza Type A (PCR) Influenza Type B (PCR) RSV RNA Qual (PCR) SARS-CoV-2 RNA (RT-PCR) 11/17/22 11/17/22 11/17/22 17:59 17:59 18:06 WBC RBC Hgb Hct MCV MCH MCHC RDW Plt Count MPV Immature Gran % (Auto) Neut % (Auto) Lymph % (Auto) [place] % (Auto) Eos % (Auto) Baso % (Auto) Lymph # (Auto) [place] # (Auto) Eos # (Auto) Baso # (Auto) Abs Immat Gran (auto) Absolute Neuts (auto) Absolute Nucleated RBC Nucleated RBC % (auto) PT INR APTT aPTT Heparin Protocol D-Dimer High Sensitivty Sodium Potassium Chloride Carbon Dioxide Anion Gap BUN Creatinine Estim Creat Clear Calc Estimated GFR Random Glucose Calcium Magnesium Total Bilirubin AST ALT Alkaline Phosphatase Total Creatine Kinase Troponin I High Sens B-Natriuretic Peptide 46 Total Protein Albumin Urine Color Yellow Urine Appearance Clear Urine pH 5.5 Ur Specific [place] 1.010 Urine Protein Negative Urine Glucose (UA) Negative Urine Ketones Negative Urine Blood Negative Urine Nitrite Negative Ur Leukocyte Esterase Negative Influenza Type A (PCR) NEGATIVE Influenza Type B (PCR) NEGATIVE RSV RNA Qual (PCR) NEGATIVE SARS-CoV-2 RNA (RT-PCR) POSITIVE A 11/17/22 11/17/22 11/18/22 21:12 21:25 01:13 WBC RBC Hgb Hct MCV MCH MCHC RDW Plt Count MPV Immature Gran % (Auto) Neut % (Auto) Lymph % (Auto) [place] % (Auto) Eos % (Auto) Baso % (Auto) Lymph # (Auto) [place] # (Auto) Eos # (Auto) Baso # (Auto) Abs Immat Gran (auto) Absolute Neuts (auto) Absolute Nucleated RBC Nucleated RBC % (auto) PT 11.5 INR 1.0 APTT 28.8 aPTT Heparin Protocol 30.6 L D-Dimer High Sensitivty 622 Sodium Potassium Chloride Carbon Dioxide Anion Gap BUN Creatinine Estim Creat Clear Calc Estimated GFR Random Glucose Calcium Magnesium Total Bilirubin AST ALT Alkaline Phosphatase Total Creatine Kinase Troponin I High Sens 122.1 H* B-Natriuretic Peptide Total Protein Albumin Urine Color Urine Appearance Urine pH Ur Specific [place] Urine Protein Urine Glucose (UA) Urine Ketones Urine Blood Urine Nitrite Ur Leukocyte Esterase Influenza Type A (PCR) Influenza Type B (PCR) RSV RNA Qual (PCR) SARS-CoV-2 RNA (RT-PCR) 11/18/22 11/18/22 11/18/22 07:08 07:08 07:08 WBC 3.4 L RBC 4.06 L Hgb 12.7 Hct 38.9 MCV 95.8 MCH 31.3 MCHC 32.6 RDW 13.8 Plt Count 219 MPV 10.2 Immature Gran % (Auto) 0.3 Neut % (Auto) 44.7 L Lymph % (Auto) 44.2 H [place] % (Auto) 10.2 Eos % (Auto) 0.0 Baso % (Auto) 0.6 Lymph # (Auto) 1.5 [place] # (Auto) 0.4 Eos # (Auto) 0.0 Baso # (Auto) 0.0 Abs Immat Gran (auto) 0.01 Absolute Neuts (auto) 1.5 L Absolute Nucleated RBC 0.000 Nucleated RBC % (auto) 0.0 PT INR APTT aPTT Heparin Protocol D-Dimer High Sensitivty Sodium 140 Potassium 4.0 Chloride 110 H Carbon Dioxide 18 L Anion Gap 16 BUN 7 L Creatinine 0.82 Estim Creat Clear Calc 65.2 Estimated GFR > 60 Random Glucose 112 Calcium 8.6 Magnesium Total Bilirubin AST ALT Alkaline Phosphatase Total Creatine Kinase Troponin I High Sens 137.2 H* B-Natriuretic Peptide Total Protein Albumin Urine Color Urine Appearance Urine pH Ur Specific [place] Urine Protein Urine Glucose (UA) Urine Ketones Urine Blood Urine Nitrite Ur Leukocyte Esterase Influenza Type A (PCR) Influenza Type B (PCR) RSV RNA Qual (PCR) SARS-CoV-2 RNA (RT-PCR) 11/18/22 07:08 WBC RBC Hgb Hct MCV MCH MCHC RDW Plt Count MPV Immature Gran % (Auto) Neut % (Auto) Lymph % (Auto) [place] % (Auto) Eos % (Auto) Baso % (Auto) Lymph # (Auto) [place] # (Auto) Eos # (Auto) Baso # (Auto) Abs Immat Gran (auto) Absolute Neuts (auto) Absolute Nucleated RBC Nucleated RBC % (auto) PT INR APTT aPTT Heparin Protocol 83.3 H D D-Dimer High Sensitivty Sodium Potassium Chloride Carbon Dioxide Anion Gap BUN Creatinine Estim Creat Clear Calc Estimated GFR Random Glucose Calcium Magnesium Total Bilirubin AST ALT Alkaline Phosphatase Total Creatine Kinase Troponin I High Sens B-Natriuretic Peptide Total Protein Albumin Urine Color Urine Appearance Urine pH Ur Specific [place] Urine Protein Urine Glucose (UA) Urine Ketones Urine Blood Urine Nitrite Ur Leukocyte Esterase Influenza Type A (PCR) Influenza Type B (PCR) RSV RNA Qual (PCR) SARS-CoV-2 RNA (RT-PCR) Imaging Radiologist's impression: Impressions Cervical Spine CT 11/17/22 18:25 IMPRESSION: No acute intracranial process seen. Minimal mucoperiosteal thickening of bilateral maxillary sinuses is noted. Mild straightening of cervical lordosis. No visible acute fracture, dislocation or subluxation seen. Mild degenerative disc changes C4-C5 and C5-C6 disc levels. Head CT 11/17/22 18:25 IMPRESSION: No acute intracranial process seen. Minimal mucoperiosteal thickening of bilateral maxillary sinuses is noted. Mild straightening of cervical lordosis. No visible acute fracture, dislocation or subluxation seen. Mild degenerative disc changes C4-C5 and C5-C6 disc levels. Chest CTA 11/17/22 23:53 IMPRESSION: 1. No pulmonary embolus identified. 2. Bibasilar atelectasis. 3. Mild cardiomegaly. VTE: negative Assessment and Plan (1) Hypertension: Status: Acute (2) Acute COVID-19: Status: Acute (3) NSTEMI (non-ST elevated myocardial infarction): Status: Acute Plan 76-year-old female from [place] who is presenting for dizziness and has tested positive for COVID-19. She was hypertensive on admission. Her mildly elevated troponin levels are explained by the elevated blood pressure. She does not have any dynamic EKG changes or any chest discomfort or shortness of breath. Her main complaint is sinus pain and ear pain which is probably due to COVID-19. I think currently her presentation is underwhelming for acute coronary syndrome and we should stop the heparin drip. She can stay on baby aspirin. Blood pressure control which is improving already. Consider giving her a thiazide diuretic. Thank you for allowing me to participate in the care of your patient. Please feel free to contact me if you have any questions. Time Spent With Patient Time: Total time managing care of this patient today ____ minutes. Procedures Date of Service Date of Service: 11/18/22
--- NOTE | 2022-11-18 14:20 | MHC.CM.PN ---
CM SPOKE WITH DAUGHTER EDUARDO FOR INFORMATION. PT IS FROM [place], STAYING WITH HER DAUGHTER. PER EDUARDO, PT DOES NOT USE DME. UNSURE IF HAS A HCP,+COVID VAX X 2. PCP IN [place]. DAUGHTER WILL TRANSPORT ON DC. CM WILL CONTINUE TO FOLLOW
[2022-11-18 15:24] LABS: PTT Heparin Drip 99.7 SEC (53-77.9)
[2022-11-18 22:01] LABS: PTT Heparin Drip 84.5 SEC (53-77.9)
[2022-11-19] MEDS: Heparin Sodium,Porcine/1/2NS 25,000 UNIT/250 ML IV.SOLN 3.55 UNIT IVCONT (02:34)
[2022-11-19 03:11] VITALS: BP 165/85; PULSE 60; RESP 18; TEMP 37.2; O2SAT 93
[2022-11-19 06:27] LABS: PTT Heparin Drip 55.7 SEC (53-77.9)
[2022-11-19 07:14] VITALS: BP 145/75; PULSE 65; RESP 18; TEMP 37.2; O2SAT 93
[2022-11-19] MEDS: 0.9 % Sodium Chloride Flush 3 ML SYRINGE IVFLUSH (09:04)
[2022-11-19] MEDS: amLODIPine Besylate 5 MG TABLET PO (09:04)
[2022-11-19] MEDS: Enalapril Maleate 10 MG TABLET PO (09:04)
--- NOTE | 2022-11-19 09:24 | P.DS_ITS ---
DS: Providers Provider Date of Service: 11/20/22 Date of admission: 11/18/22 00:31 Primary care physician: Unknown Physician Consults: 11/18/22 00:31 Consult to Cardiology Routine Consulting Provider: Hector Cameron Reason for consultation: NSTEMI Has provider been notified: Yes DS: Diagnosis Discharge Diagnosis (1) Hypertension: Status: Acute (2) Acute COVID-19: Status: Acute (3) NSTEMI (non-ST elevated myocardial infarction): Status: Acute DS: Summary Hospital Course Hospital Course: admission HPI Chief Complaint: Chest discomfort This is a 76-year-old female with pertinent history of essential hypertension who presents to the emergency department for evaluation of chest discomfort and dizziness.? Patient is from [place] and flew in from [place] this week.? States she has been having chest discomfort, substernal which is worse with exertion.? Also has runny nose, headache, generalized body ache.? Chest discomfort associated with shortness of breath.? She only takes an antihypertensive and states he is compliant with it.? Her blood pressures were running high at home.? Patient also had an episode of dizziness after which she fell.? Unclear if she lost consciousness.? Patient denies fever, chills, palpitations, abdominal pain, changes in urinary or bowel habits. No history of ACS/CHF ? In the emergency department, troponin was found to be elevated and she was initiated on heparin drip Interval history: patient was admitted out of concern for acute coronary syndrome, and night level although high when not significantly trending up and patient was not having any further a chest discomfort EKG showed no acute ischemic changes she was initially treated with intravenous heparin aspirin and was evaluated evaluated by cardiology with no need for further testing at this time. Covid is assymptomatic. Dr Cameron will arrange for echo on outpatatient basis. Time Spent with Patient Time attestation: Total time managing care of this patient today ____ minutes. Discharge coordination time: Greater than 30 minutes Quality: Safe Use of Opioids Does Pt have an Active Cancer Diagnosis on the Problem List?: No Quality: Stroke Does the patient have a stroke diagnosis?: No Physical Exam Vital Signs: Vital Signs: Last Vital Signs Temp 98.9 F 11/19/22 07:14 Pulse 65 11/19/22 07:14 Resp 18 11/19/22 07:14 BP 145/75 H 11/19/22 07:14 Pulse Ox 93 11/19/22 07:14 O2 Del Method 11/19/22 07:14 BMI result Body Mass Index 34.9 DS: Data Data Completed and Pending Labs on day of discharge: Laboratory Results - last 24 hr 11/18/22 11/18/22 11/18/22 07:08 15:06 21:47 aPTT Heparin Protocol 99.7 H 84.5 H Sodium 140 Potassium 4.0 Chloride 110 H Carbon Dioxide 18 L Anion Gap 16 BUN 7 L Creatinine 0.82 Estim Creat Clear Calc 65.2 Estimated GFR > 60 Random Glucose 112 Calcium 8.6 11/19/22 06:05 aPTT Heparin Protocol 55.7 D Sodium Potassium Chloride Carbon Dioxide Anion Gap BUN Creatinine Estim Creat Clear Calc Estimated GFR Random Glucose Calcium Discharge Plan Discharge Anticipated Discharge Date/Time: 11/19/22 09:26 Patient Disposition: Home, Self-Care Discharge Diagnosis: Chest pain, covid Referrals: Physician,Unknown J [Primary Care Provider] - 1 Week Discharge Medications: New aspirin 81 mg capsule 81 mg PO DAILY Qty: 90 0RF Rx Instructions: OTC baby to be offered Continued enalapril maleate 10 mg Tablet 10 mg PO DAILY DIVENIS 500 MG tablet 500 mg PO BID Rx Instructions: [email or web address] Discharge Orders: Discharge Order (Routine); Ordered 11/19/22 Ordered By: Jhonny Escalona Diet: Advance to usual diet Activity on Discharge: As tolerated Stand Alone Forms: Patient Portal Discharge page Care Plan Goals: full recovery Health Concerns: covid 19 chest pain Plan of Treatment: Follow up with your Doctor in a week continue taking your usual medications Follow up with Dr. cameron to have echocardiologrram done Assessment: as above Discharge Date/Time: 11/19/22 13:27
--- NOTE | 2022-11-19 09:47 | MHC.CM.PN ---
DP:PT MEDICALLY CLEARED FOR DC HOME, NO SERVICES. RN AWARE. DAUGHTER EDUARDO NOTIFIED AND WILL BE TRANSPORTING HOME.
[2022-11-19 12:09] LABS: PTT Heparin Drip 31.4 SEC (53-77.9)
== END 2022-11-19 13:27 | disposition home or self-care (01) | DRG 178 ==
LOC: HO.ED 11-18 00:38 → HO.EDOVER 11-18 00:51 → HO.IMC 11-18 05:23
PROVIDERS: Physician Assistant Medical; Admitting Provider Student in an Organized Health Care Education/Training Program; Emergency Provider Internal Medicine; Visit Provider Internal Medicine
DX: U07.1 COVID-19 (principal); I16.1 Hypertensive emergency; R79.89 Other specified abnormal findings of blood chemistry; I10 Essential (primary) hypertension; Z79.899 Other long term (current) drug therapy
CPT/HCPCS: 0241U; 36415; 70450; 71275; 72125; 80048; 80053; 81003; 82550; 83735; 83880; 84484; 85025; 85379; 85610; 85730; 93005; 99285; J1643; Q9967